=== PATIENT | female | born 1980 | race Caucasian/White ===

== ENCOUNTER 2018-03-24 15:19 | Emergency (ER) | payer MEDICAID, SELFPAY ==
[2018-03-24 15:21] VITALS: BP 146/73; PULSE 99; RESP 18; TEMP 37.7; O2SAT 97; BMI 33.7
[2018-03-24] MEDS: Ketorolac 30 MG/ML Syringe IM (16:32)
--- NOTE | 2018-03-24 16:46 | ED.DCSUM_ITS ---
- ER Visit Summary Date of Service: 03/24/18 Chief Complaint: Sore throat History of Present Illness: The patient is a 37 F presenting with sore throat. She states this started on . She has had fevers at home. She has had temperatures up to 101. She has been taking NSAIDs at home. She also complains of bilateral ear pain left greater than right. She has painful swallowing but no difficulty swallowing. No drooling. No other complaints. Physical Examination: Vitals are stable. Patient is afebrile. Alert no acute distress. HEENT exam TMs clear bilaterally. Pharyngeal erythema with no exudate. Uvula is midline Neck is supple. No meningismus Lungs are clear and equal bilaterally. Heart is regular rate and rhythm. Abdomen is soft nontender nondistended. Extremities are unremarkable. Skin is warm and dry. Remainder of exam is unremarkable. Emergency Department Course and Treatment: Patient was given Decadron, Toradol. Rapid strep is positive. She is given Zithromax due to penicillin allergy. Advised to follow-up with her primary care physician. Advised return to ED if worsening complaints. Disposition: Discharge home Impression: Pharyngitis This note was generated with [employer] dictation software. It may contain incorrect words, spelling, and punctuation that were not noted in review of the chart prior to signing ED Disposition - Plan for ED Patient: Chief Complaint: Cold Sx Referrals: Miguel Carroll DO [Primary Care Provider] -
--- NOTE | 2018-03-24 17:08 | ED.DEP ---
ED Disposition - Plan for ED Patient: Chief Complaint: Cold Sx Instructions: ED Strep Pharyngitis Poss Prescriptions: Azithromycin [Zithromax Z-Wilfred] 250 mg PO UD #1 box Referrals: Miguel Carroll DO [Primary Care Provider] -
[2018-03-24 17:14] VITALS: RESP 18
== END 2018-03-24 17:15 | disposition home or self-care (01) ==
LOC: ED 17:00
PROVIDERS: Emergency Provider Emergency Medicine; Family Provider Student in an Organized Health Care Education/Training Program; PCP Student in an Organized Health Care Education/Training Program
DX: J02.9 Acute pharyngitis, unspecified (principal); H92.03 Otalgia, bilateral; R50.9 Fever, unspecified; K58.9 Irritable bowel syndrome, unspecified; K21.9 Gastro-esophageal reflux disease without esophagitis; F31.9 Bipolar disorder, unspecified; Z72.0 Tobacco use; Z79.899 Other long term (current) drug therapy; Z88.0 Allergy status to penicillin
CPT/HCPCS: 87880; 96372; 99283

== ENCOUNTER 2018-03-26 17:45 | Emergency (ER) | payer MEDICAID, SELFPAY ==
[2018-03-26 17:45] VITALS: BP 142/79; PULSE 87; RESP 16; TEMP 36.2; O2SAT 99; BMI 33.3
--- NOTE | 2018-03-26 18:06 | CT_ITS ---
STUDY: CT SOFT TISSUE NECK WITH CONTRAST REASON FOR EXAM: Female, 37 years old. Strep throat RADIATION DOSAGE (If Supplied By Facility): CTDIvol = ( 20.49 ) mGy, DLP = ( 567.82 ) mGycm TECHNIQUE: The patient was scanned in a multi-detector CT scanner. High resolution transaxial imaging was performed following intravenous administration of 100ML ml of Isovue 300 contrast material. Sagittal and coronal images were reconstructed. Individualized dose optimization techniques were used for this CT. COMPARISON: None. FINDINGS: Normal bilateral parotid glands. 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 Normal bilateral parapharyngeal spaces. Normal bilateral carotid spaces. Normal bilateral sublingual and submandibular glands and spaces. Normal visualized nasopharynx. Normal retropharyngeal space. Normal perivertebral space. Enlarged heterogeneous tonsils bilaterally, left more than right. Mild artifact limiting evaluation due to tonsillar level. Left peritonsillar abscess cannot be excluded. The visualized tongue, tongue base and oropharynx are normal. The visualized cervical lymph nodes (levels I-) are within normal size limits, and maintain normal morphology. There is no demonstrated solid or cystic mass lesion. There is no abnormal contrast enhancement. Normal epiglottis, bilateral vallecula and hypopharynx. The pre-epiglottic and paraglottic adipose spaces are normal. Normal visualized bilateral piriform sinuses, aryepiglottic folds, vocal cords, and arytenoid-cricoid articulations. Normal subglottic trachea. Normal bilateral lobes of the thyroid gland. Normal visualized pulmonary apices. Right maxillary sinus mucosal thickening. Normal visualized cervical spine. CT/Soft Tissue Neck WITH Contrast IMPRESSION: Heterogeneous tonsils bilaterally, left more than right. Artifact limiting evaluation at the tonsillar levels. Peritonsillar abscess cannot be completely excluded. Right maxillary sinus disease. Electronically Signed: Yoni Sandra DO at 20:05 EDT Tel [phone], Service support ,
--- NOTE | 2018-03-26 18:52 | ED.RN ---
DELAY OF CARE, PATIENT WITH VERY POOR VENOUS ACCESS. I TRIED, A DARIAN RN TRIED AND NOW BETTIE MUSE RN IS IN ROOM TO ATTEMPT ANY IV ACCESS.
[2018-03-26] MEDS: Ketorolac 30 MG/ML Syringe IV (19:00)
[2018-03-26] MEDS: MethylPREDNISolone 125 MG/2 ML Vial IV (19:00)
[2018-03-26] MEDS: 0.9% Normal Saline 1,000 ML 150 ML IV (19:00)
[2018-03-26 19:27] LABS: Anion Gap 9 (5-15); BUN 10 mg/dL (7-18); BUN/Creat Ratio 15.1 RATIO (10-20); Calcium,Total 8.9 mg/dL (8.5-10.1); Chloride 111 mmol/L (98-107); Creatinine, Serum 0.66 mg/dL (0.55-1.02); EST Glomerular Filtration Rate 107 mL/min (>60); Est Glom Filt Rate - Afr Amer 129 mL/min (>60); Estimated Creatinine Clearance 102.74 ml/min; Glucose 91 mg/dL (74-106); Potassium 3.4 mmol/L (3.5-5.1); Sodium Level 141 mmol/L (136-145)
[2018-03-26 19:29] LABS: Absolute Lymphocyte Count 4.52 X10^3/ul (0.83-4.51); Absolute Neutrophil Count 8.6 X10^3/uL (2.0-7.7); Basophil# 0.07 X10^3/uL; Basophil% 0.5 % (0-1); Eosinophil# 0.11 X10^3/uL; Eosinophils% 0.7 % (0-5); Hematocrit 36.8 % (37-47); Hemoglobin 12.5 g/dl (12.0-15.0); Lymphocyte # 4.52 X10^3/ul (4.0); Lymphocyte % 30.2 % (19-41); Mean Corpuscular Hgb 32.1 pg (27.0-32.0); Mean Corpuscular Volume 94.6 fL (81-99); Mean Platelet Vol. 11.4 fl (6.2-12.0); Monocyte# 1.63 X10^3/uL; Monocyte% 10.9 % (0-10); Neutrophil # 8.62 X10^3/uL (2.7-7.7); Neutrophil % 57.4 % (47-70); Platelet Count 241 K/mm3 (150-450); RBC Distribution Width CV 13.3 % (11.6-14.6); RBC Distribution Width SD 44.6 fl (35.1-43.9); Red Blood Count 3.89 M/mm3 (4.2-5.4)
[2018-03-26 19:46] LABS: Pregnancy, Serum, hCG Quali. NEGATIVE Negative (0-9 Nonpreg)
[2018-03-26 20:12] LABS: Differential Indicated SCAN CRITERIA MET; POSITIVE COUNT NO; POSITIVE DIFFERENTIAL YES; POSITIVE MORPHOLOGY YES
[2018-03-26 20:13] LABS: Platelet Estimate ADEQUATE (ADEQ); Red Cell Morphology NORM C+C NORMAL (NORM C&C)
--- NOTE | 2018-03-26 20:37 | ED.RN ---
PT HAS BEEN COMPLAINING ABOUT PAIN AND BURNING AT IV SITE SINCE IT WAS PLACED. I WAS ABLE TO GIVE HER MEDICATIONS AND START HER IV DRIP. NO SIGNS OF INFILTRATION. PT FORCED ME TO REMOVE IV AND WAS UPSET. EDUCATED PT ON NO MORE IV MEDICATIONS. PT UPDATED ON POC.
--- NOTE | 2018-03-26 20:42 | ED.DCSUM_ITS ---
- ER Visit Summary Date of Service: 03/26/18 Chief Complaint: Sore throat History of Present Illness: The patient is a 37 F who had a sore throat for the past 5 days. Patient was seen in the ER on the were rapid strep was positive. She was started on Zithromax. She was given a dose of Decadron and T oradol in the ED. Patient states her pain was improved after her ED visit, but is now worsening again. She states she woke this morning with difficulty breathing. She been taking ibuprofen and her Zithromax at home. Physical Examination: Vital signs are unremarkable. Patient sitting upright in bed speaking with a strong voice. I can lie her supine and she has no difficulty breathing or talking. Head neck examination reveals TMs to be clear. Uvula is midline. She has 2-3+ tonsils with no exudate. There is mild bilateral anterior cervical lymphadenopathy. Heart is regular rate and rhythm. Lung sounds clear. Abdomen is soft nontender. Test Results: CBC was a white count of 15. Chemistry studies reveal potassium 3.4. test negative. CT of the neck with contrast reveals heterogeneous tonsils bilaterally, left greater than right. There is artifact limiting evaluation of the tonsillar levels and peritonsillar abscess cannot be completely excluded. Emergency Department Course and Treatment: Patient was given Toradol and Solu- Medrol here. On repeat evaluation she is resting comfortably. She will be given prednisone for home and will continue her Zithromax. Treatment Plan: [] Disposition: Discharge Impression: Strep pharyngitis This note was generated with [employer] dictation software. It may contain incorrect words, spelling, and punctuation that were not noted in review of the chart prior to signing ED Disposition - Plan for ED Patient: Chief Complaint: Sore Throat Referrals: Miguel Carroll DO [Primary Care Provider] -
--- NOTE | 2018-03-26 20:44 | ED.DEP ---
ED Disposition - Plan for ED Patient: Disposition: Home or Assisted Living Chief Complaint: Sore Throat Instructions: ED Strep Pharyngitis Conf Referrals: Miguel Carroll DO [Primary Care Provider] - 1 Week
--- NOTE | 2018-03-26 20:45 | ED.DEP ---
ED Disposition - Plan for ED Patient: Disposition: Home or Assisted Living Chief Complaint: Sore Throat Instructions: ED Strep Pharyngitis Conf Prescriptions: Prednisone [Deltasone] 40 mg PO DAILY #10 tablet Referrals: Miguel Carroll DO [Primary Care Provider] - 1 Week
[2018-03-26 20:57] VITALS: BP 131/67; PULSE 79; RESP 22; O2SAT 97
--- NOTE | 2018-03-26 20:58 | ED.RN ---
THIS NURSE REVIEWED D/C INSTRUCTIONS WITH PT. PT VERBALIZED UNDERSTANDING OF INSTRUCTIONS. IV ALREADY D/C. PT DENIES FURTHER NEEDS OR QUESTIONS AT THIS TIME.
[2018-03-27 12:34] LABS: Pathologist Review Reviewed
== END 2018-03-26 20:59 | disposition home or self-care (01) ==
PROVIDERS: Emergency Provider Emergency Medicine; Family Provider Student in an Organized Health Care Education/Training Program; PCP Student in an Organized Health Care Education/Training Program
DX: J02.0 Streptococcal pharyngitis (principal); J45.909 Unspecified asthma, uncomplicated; K21.9 Gastro-esophageal reflux disease without esophagitis; F31.9 Bipolar disorder, unspecified; Z72.0 Tobacco use; Z79.899 Other long term (current) drug therapy
CPT/HCPCS: 70491; 80048; 84703; 85025; 96361; 96374; 96375; 99285; J7030; Q9967; A4216

== ENCOUNTER → 2019-09-05 13:50 | Outpatient (CLI) | payer MEDICAID, SELFPAY ==
--- NOTE | 2019-09-05 13:55 | BI_ITS ---
MAMMOGRAPHY - BILATERAL DIAGNOSTIC REASON FOR EXAM: Female, 39 years old. Right breast lump. Painful. PERTINENT HISTORY: Non-contributory. TECHNIQUE: Digital bilateral breast yesenia (3D mammographic acquisition) in the CC and MLO projections. 2-D mediolateral oblique (MLO) and craniocaudad (CC) views of both breasts were obtained. CAD: Full Field Digital Mammography with Computer Added Detection was performed. COMPARISON: None. Baseline examination. FINDINGS: Breast Composition: The breasts are extremely dense, which lowers the sensitivity of mammography. The palpable abnormality corresponds to a 3.1 cm x 2.1 cm well-defined nodule in the inferior medial portion of the left breast. Correlation with ultrasound is recommended. Benign-appearing bilateral axillary lymph nodes. No other significant abnormalities are identified. BI/DIAG MAMM W/CAD, BILAT IMPRESSION: 2.1 cm x 3.1 cm well-defined nodule in the inferior medial aspect of the left breast as described. Correlation with ultrasound is recommended. Benign appearing bilateral axillary lymph cells. ASSESSMENT CATEGORY: BIRADS Category 0: Incomplete. Need additional imaging evaluation. A letter regarding these results will be sent to the patient by the facility within 30 days. Approximately 10% of breast cancers are not detected by mammography. A normal mammogram should not delay biopsy of a clinically suspicious abnormality. Electronically Signed: Arturo Chung, at 15:11 EDT , Service support ,
--- NOTE | 2019-09-05 13:55 | US_ITS ---
STUDY: ULTRASOUND BREAST - LEFT REASON FOR EXAM: Female, 39 years old. Palpable lump left breast. TECHNIQUE: Axial and longitudinal images of the LEFT breast were performed with a high resolution ultrasound transducer. # OF IMAGES: 22 COMPARISON: Comparison is made with prior mammogram done earlier in the day. FINDINGS: LEFT Breast: The mammographic abnormality corresponds to a 2.4 cm x 2.5 cm x 1.6 cm well-circumscribed heterogeneous solid nodule at the 7:00 position of the breast at 2 cm from the nipple. Increased vascularity is seen along its margin. A biopsy is recommended for further evaluation. US/Breast Limited Unilateral IMPRESSION: 2.4 cm x 2.5 cm x 1 0.6 mL well-circumscribed heterogeneous solid nodule at the 7:00 position of the breast at 2 cm from the nipple. A biopsy is recommended for further evaluation. ASSESSMENT CATEGORY: BIRADS Category 4: Suspicious - Biopsy Should Be Considered. A letter regarding these results will be sent to the patient by the facility within 30 days. Electronically Signed: Arturo Chung, at 15:31 EDT , Service support ,
== END ==
PROVIDERS: PCP Student in an Organized Health Care Education/Training Program; Referring Provider Student in an Organized Health Care Education/Training Program; Visit Provider Student in an Organized Health Care Education/Training Program
DX: N63.24 Unspecified lump in the left breast, lower inner quadrant (principal); N64.4 Mastodynia
CPT/HCPCS: 76642; 77062; 77066; G0279

== ENCOUNTER → 2019-09-11 14:25 | Outpatient (CLI) | payer MEDICAID, SELFPAY ==
--- NOTE | 2019-09-11 | BRBX_PTH ---
PATIENT: JUNIOR HYLTON LOC: PAT U#:[id number] AGE/SX: 45/F ROOM: RE09/11/[address]: Dr. Harrison Barillas MD : 1980 BED: DIS: SPEC #: [id number] RECD: 09/11/19 14:12 STATUS: DEMETRI REXochitl #: [id number] YONATHAN: 09/11/19 00:[address]: Harrison Barillas DEPT: SURGICAL PATHOLOGY RECD BY: Mayank Yoo ENTERED: 09/12/19 11:29 SP TYPE: BREAST BX OTHR DR: Dr. 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 Negative for atypia or malignancy. SJ:deven 09/13/19 COMMENT Correlation with clinical, radiologic findings and appropriate follow up are necessary. Case has been reviewed in consultation with Dr. Agarwal who concurs with the above diagnosis. IDC:AM MICROSCOPIC DESCRIPTION Slides are reviewed. GROSS DESCRIPTION Received in fixative is one container labeled with the patient's name and designated left breast. The specimen consists of two elongated fragments of light schultz soft tissue ranging in length from 0.6 to 1 cm and each having a diameter of 0.2 cm. The specimen is submitted in its entirety in one cassette. / AM:deven 09/12/19 TC:1 CPT: 22074
[2019-09-11 14:23] VITALS: BMI 33.3
== END ==
PROVIDERS: PCP Student in an Organized Health Care Education/Training Program; Referring Provider Surgery; Visit Provider Surgery
DX: R92.8 Other abnormal and inconclusive findings on diagnostic imaging of breast (principal); N63.0 Unspecified lump in unspecified breast
CPT/HCPCS: 88305

== ENCOUNTER → 2020-02-14 10:46 | Outpatient (CLI) | payer MEDICAID, SELFPAY ==
[2020-02-13 14:03] VITALS: BMI 34.3
--- NOTE | 2020-02-14 10:47 | US_ITS ---
STUDY: ULTRASOUND BREAST - LEFT REASON FOR EXAM: Female, 39 years old. Palpable lump left breast. TECHNIQUE: Axial and longitudinal images of the LEFT breast were performed with a high resolution ultrasound transducer. # OF IMAGES: 42 COMPARISON: Comparison is made with prior ultrasound of the left breast dated 09/05/2019 and prior mammogram dated 09/05/2019. FINDINGS: LEFT Breast: Once again, there is evidence of a 2.8 cm x 3.3 cm x 2.2 cm inhomogeneous solid mass at the 7 o''clock position of the breast. This is increased in size as compared to prior study. The upper inner quadrant of the breast was examined at this time. No sonographic abnormality is seen. US/Breast Limited Unilateral IMPRESSION: Slight increase in size of the previously seen inhomogeneous solid mass at the 7 o''clock position of the breast. No other sonographic abnormality is seen. The patient is scheduled for lumpectomy of the previously mentioned mass. ASSESSMENT CATEGORY: BIRADS Category 4: Suspicious - Biopsy Should Be Considered. A letter regarding these results will be sent to the patient by the facility within 30 days. Electronically Signed: Arturo Chung, at 12:41 EDT , Service support ,
== END ==
PROVIDERS: PCP Student in an Organized Health Care Education/Training Program; Referring Provider Surgery; Visit Provider Surgery
DX: N63.20 Unspecified lump in the left breast, unspecified quadrant (principal)
CPT/HCPCS: 76642

== ENCOUNTER 2020-02-28 08:26 | Day surgery (SDC) | payer MEDICAID, SELFPAY ==
--- NOTE | 2020-02-19 03:20 | HP_ITS ---
Intake Vital Signs 02/19/20 BMI 34.3 02/19/20 Height 5 ft 4 in 02/19/20 Weight: 200 lb 02/19/20 BMI 34.3 02/19/20 Respiration 16 Intake Visit Reasons: F/U LEFT BREAST US 02/13 [facility] Chief Complaint: f/u US Certified Composites Technician Required: No Is patient in pain?: No Allergies cyprodenate Allergy (Unknown, Verified 02/19/20 15:11) Unknown lamotrigine Allergy (Unknown, Verified 02/19/20 15:11) Unknown ondansetron [From Zofran] Allergy (Unknown, Verified 02/19/20 15:11) Unknown sulfamethoxazole [From Bactrim] Allergy (Unknown, Verified 02/19/20 15:11) Unknown trimethoprim [From Bactrim] Allergy (Unknown, Verified 02/19/20 15:11) Unknown aripiprazole [From Abilify] Allergy (Verified 02/19/20 15:11) Rash cephalexin monohydrate [From Keflex] Allergy (Verified 02/19/20 15:11) Swelling naproxen Allergy (Verified 02/19/20 15:11) Rash ondansetron HCl [From Zofran] Allergy (Verified 02/19/20 15:11) Other oxycodone HCl [From Percocet] Adverse Reaction (Verified 02/19/20 15:11) Other Penicillins Adverse Reaction (Verified 02/19/20 15:11) Pain in joints Medications Omeprazole [Prilosec] 40 mg PO BID 02/07/15 [History Confirmed 02/19/20] Docusate Sodium [Colace] 200 mg PO QHS 05/16/15 [History Confirmed 02/19/20] Cetirizine HCl [Zyrtec] 10 mg PO DAILY 06/25/15 [History Confirmed 02/19/20] Albuterol Inhaler [Ventolin Hfa] 1 - 2 puff INHALATION Q4H PRN PRN #1 inhaler 04/09/16 [Rx Confirmed 02/19/20] hydrOXYzine pamoate capsule [Vistaril] 50 mg PO TID PRN PRN 12/03/16 [History Confirmed 02/19/20] colestipol 1 gram tablet PO 09/11/19 [History Confirmed 02/19/20] dicyclomine 20 mg tablet 20 mg PO Q6H tab 09/11/19 [History Confirmed 02/19/20] doxepin 75 mg capsule 75 mg PO QHS cap 09/11/19 [History Confirmed 02/19/20] PFSH Medical History Acid reflux (Acute) Diarrhea (Acute) Asthma (Acute) SOB (shortness of breath) (Acute) Anxiety (Acute) Depression (Acute) Back problem (Acute) Surgical History Hx of tubal ligation (Acute) History of tympanostomy tube placement (Acute) History of (Acute) Hx of cholecystectomy (Acute) Social History (Updated 02/19/20 @ 15:[address] Harrison Barillas MD) Smoking Status: Current every day smoker second hand exposure: Yes alcohol intake: never substance use type: does not use caffeine: Yes what type of physical activity do you participate in: none frequency: does not exercise seatbelt use: always HPI HPI Surgical H&P: Yes HPI: JUNIOR HYLTON, is a 39 F who presents to the office today for Preop evaluation for surgery for benign fungoides tumor she has in the left lower medial aspect of her breast. I did a biopsy of this and this came back as a benign [place] tumor and she is presenting here today to have a preoperative H&P to get the surgery done however she states that she is having palpable fullness and mass in the upper inner quadrant of her left breast and there have been no imaging studies of this that I can find. Patient had a repeat ultrasound of her left breast which did not show any masses in the area that she thought she felt something. ROS Breast Breast: No nipple discharge Exam HENMT Head: normal to inspection, normocephalic, atraumatic Mouth: oropharynx normal, moist mucous membranes Eyes General: appearance normal, both eyes and all related structures Sclera: sclerae normal Neck Neck: trachea midline, no lymphadenopathy noted Neck mass: No Thyroid: thyroid normal Lymphatic: no lymphadenopathy noted Chest Breast inspection: normal inspection of the breasts Breast Palpation: No nipple discharge Other: Hard palpable lesion is identified in the lower inner quadrant of the left breast. Resp Other: Respiratory Exam: Deferred Cardio Other: Cardiac Exam: Deferred GI Other: GI Exam: Deferred Other: Rectal Exam: Deferred Extrem Other: Extremity Exam: Deferred Assessment & Plan Problems 1. 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 I have recommended And excisional left breast biopsy. I have described the procedure to the patient. I have discussed with the patient that sometimes the ultrasound lesion may be artifact and is user dependent and therefore prior to undergoing the procedure, the patient will have a definitive US to ensure that the lesion is truly present and is not artifact. Patient has been counseled to the risks/benefits of the procedure. I have explained the risks of the surgery, including but not limited to: infection, bleeding, injury to any blood vessels/nerves, scar tissue, missing the lesion, further surgery, etc. - the patient understands and agrees to proceed. I have answered all of the patient's questions to her satisfaction and she has no further questions. 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 delaying the surgery/procedure. It is not possible to know either the risk of delaying the surgery or procedure or chance of getting an infection with perfect accuracy, but a joint decision was made between the patient and the surgeon/proceduralist ?to proceed at this time with the scheduled surgery/procedure as indicated on the consent form. 02/19/20 1521 <Electronically signed by Harrison brian MD> Date _ Harrison Barillas MD I have re-examined the patient. There are no clinical changes since date of exam.
[2020-02-19 15:11] VITALS: BMI 34.3
[2020-02-28] VITALS (7 sets, daily range): BP systolic 105–124; BP diastolic 62–75; PULSE 72–88; RESP 16; TEMP 36.3–37.7; O2SAT 96–100; BMI 35.4
[2020-02-28] MEDS: Lactated Ringers 1,000 ML 100 ML IV ×2 (09:02→11:39)
[2020-02-28 09:05] LABS: Internal QC Validated? YES +Cl - CLEAR BKGD; Pregnancy, Urine Negative Negative
--- NOTE | 2020-02-28 10:40 | BRBX_PTH ---
PATIENT: JUNIOR HYLTON [place] [facility] [id number] AGE/SX: 39/F ROOM: RE02/28/[address]: Dr. Harrison Barillas MD : 1980 BED: DIS: 02/28/2020 SPEC #: [id number] RECD: 02/28/20 11:47 STATUS: DEMETRI REXochitl #: [id number] YONATHAN: 02/28/20 10:[address]: Harrison Barillas DEPT: SURGICAL PATHOLOGY RECD BY: Vivi Patterson ENTERED: 02/28/20 13:09 SP TYPE: BREAST BX OTHR DR: Dr. Miguel Carroll, DO Tissues: Left breast, NOS Procedures: Surgery Specimen Level V HEADER OPERATION: Left breast phyllodes tumor excision PRE-OP DIAGNOSIS: Benign phyllodes tumor of left breast TISSUE SUBMITTED: Excision left breast phyllodes tumor MICROSCOPIC DIAGNOSIS Left breast phyllodes tumor, excisional biopsy: Fibroadenoma/benign phyllodes tumor. Negative for atypia or malignancy. OLMAN:deven 03/03/20 COMMENT Please make reference to previous specimen ([id number]) left breast, ultrasound-guided core biopsy with diagnosis of fibroadenoma/benign phyllodes tumor with focal fibrocystic changes. MICROSCOPIC DESCRIPTION Slides are reviewed. GROSS DESCRIPTION Received in fixative is one container labeled with the patient's name and designated excision left breast phyllodes tumor. The specimen consists of a schultz nodular piece of tissue measuring 4 x 2.5 x 2.5 cm. The specimen is not oriented. The specimen is inked, serially sectioned and reveals schultz-white solid cut surfaces. Supervisor Kennel sections are submitted in six cassettes. / OLMAN:deven 03/02/20 TC:1 CPT: 67451
--- NOTE | 2020-02-28 10:52 | PCM.OPRPT ---
Problem List (1) Benign phyllodes tumor of left breast Status: Acute Report of Operation Date of Procedure: 02/28/20 Pre-Operative Diagnosis: phylodes tumor left breast Post-Operative Diagnosis: Same Surgery/Procedure Performed:: Excisional left breast biopsy Type of Anesthesia:: General Anesthesiologist: Wayne Burciaga Specimen's removed: phylodes tumor left breast Estimated Blood Loss (mL): < 25 cc Description of Procedure: Patient was brought into the operating room. Placed in the supine position. Under excellent general trach intubation left breast was sterilely prepped draped usual fashion. At the 7 o'clock position the mass was palpated local was injected incision was made dissection was carried down the tumor was removed in its entirety and sent to pathology for permanent sectioning. Electrocautery was used for good pneumostasis. More local was injected in the subcutaneous tissues. Subcutaneous tissue was brought together with a [id number] stitch of 2-0 Vicryl. Deep dermal stitches of 3-0 Vicryl. A running 4-0 Monocryl. Dermabond was applied sterile dressings were applied and the patient tolerated the procedure well. Of note patient stated that she was allergic to clindamycin just prior to it being run in the operating room. I elected not to give her any antibiotics. And only use the Chloraseptic prep. - Admit VTE Documentation VTE Present on Admission: No VTE Mechan Device Prophylaxis: SCD's VTE Pharm Prophylaxis ordered?: No Reason prophylaxis not ordered:: Treatment Not Indicated [id number]: [id number] Biopsy of breast open
--- NOTE | 2020-02-28 10:56 | DCINST_ITS ---
Discharge Diet: No Restrictions Discharge Activity: Return to Normal Activity May shower in (days): 3 Remove Dressing in (days):: 3 - Leave Dermabond in place. Allergies/Adverse Reactions: Allergies cyprodenate Allergy (Unknown, Verified 02/28/20 08:45) Unknown lamotrigine Allergy (Unknown, Verified 02/28/20 08:45) Unknown ondansetron [From Zofran] Allergy (Unknown, Verified 02/28/20 08:45) Unknown sulfamethoxazole [From Bactrim] Allergy (Unknown, Verified 02/28/20 08:45) Unknown trimethoprim [From Bactrim] Allergy (Unknown, Verified 02/28/20 08:45) Unknown aripiprazole [From Abilify] Allergy (Verified 02/28/20 08:45) Rash cephalexin monohydrate [From Keflex] Allergy (Verified 02/28/20 08:45) Swelling naproxen Allergy (Verified 02/28/20 08:45) Rash ondansetron HCl [From Zofran] Allergy (Verified 02/28/20 08:45) Other oxycodone HCl [From Percocet] Adverse Reaction (Verified 02/28/20 08:45) Other Penicillins Adverse Reaction (Verified 02/28/20 08:45) Pain in joints Medications to take at Discharge Omeprazole [Prilosec] 40 mg PO BID 02/07/15 Docusate Sodium [Colace] 200 mg PO QHS 05/16/15 Cetirizine HCl [Zyrtec] 10 mg PO DAILY 06/25/15 Albuterol Inhaler [Ventolin Hfa] 1 - 2 puff INHALATION Q4H PRN PRN #1 inhaler 04/09/16 hydrOXYzine pamoate capsule [Vistaril] 50 mg PO TID PRN PRN 12/03/16 colestipol 1 gram tablet 1 g PO PRN PRN 09/11/19 dicyclomine 20 mg tablet 20 mg PO Q6H tab 09/11/19 doxepin 75 mg capsule 75 mg PO QHS cap 09/11/19 Ascorbic Acid [Vitamin C] 1,000 mg PO DAILY 02/21/20 Multivitamin with Minerals [Multiple Vitamin] 1 ea PO DAILY 02/21/20 Topiramate [Topamax] 50 mg PO QHS 02/21/20 Hydrocodone Bitart/Apap 5-325 [Fitzpatrick 5MG-325MG] 1 - 2 tablet PO Q4H PRN PRN 6 Days #30 tablet 02/28/20 The following prescriptions were given: Hydrocodone Bitart/Apap 5-325 [Fitzpatrick 5MG-325MG] 1 - 2 tablet PO Q4H PRN PRN 6 Days #30 tablet PRN Reason: Pain Transmission Status: Sent to [facility] Primary Care Physician: Miguel Carroll DO [Primary Care Provider] - Test Results: Test results from this visit will be discussed in further detail at your follow- up appointment, if applicable. Please Follow Up With: Harrison Barillas MD - [phone] When: Please call for an appointment to be seen in one week.
[2020-02-28] MEDS: Bupivacaine Mpf 0.5% 30 ML VIAL (11:00)
[2020-02-28] MEDS: HYDROcodone Bitartrate/Apap 5/325 Tablet PO (12:50)
== END 2020-02-28 13:47 | disposition home or self-care (01) ==
LOC: SDC 08:26 → AC 08:26
PROVIDERS: Anesthesiology; PCP Student in an Organized Health Care Education/Training Program; Referring Provider Surgery; Visit Provider Surgery
PROC: (CPT 19301; principal; 2020-02-28 10:25)
DX: D24.2 Benign neoplasm of left breast (principal); R19.7 Diarrhea, unspecified; J45.909 Unspecified asthma, uncomplicated; K21.9 Gastro-esophageal reflux disease without esophagitis; F31.9 Bipolar disorder, unspecified; F41.9 Anxiety disorder, unspecified; F17.200 Nicotine dependence, unspecified, uncomplicated; Z79.899 Other long term (current) drug therapy
CPT/HCPCS: 00400; 19120; 81025; 87635; 88305; 88307; C9803; J7120; J2405; U0003

== ENCOUNTER 2021-10-05 13:53 | Emergency (ER) | payer MEDICAID, SELFPAY ==
[2021-10-05 13:53] VITALS: BP 139/77; PULSE 86; RESP 15; TEMP 36.1; O2SAT 97; BMI 31.7
--- NOTE | 2021-10-05 14:13 | CT_ITS ---
STUDY: CT ABDOMEN AND PELVIS WITHOUT CONTRAST REASON FOR EXAM: Female, 41 years old. Right flank pain RADIATION DOSAGE (If Supplied By Facility): CTDIvol = ( 11.70 ) mGy, DLP = ( 564.03 ) mGycm TECHNIQUE: Transaxial images were obtained from the dome of the diaphragm to the symphysis pubis without oral contrast, and without intravenous contrast. Sagittal and coronal images were reconstructed. Individualized dose optimization techniques were used for this CT. COMPARISON: None. FINDINGS: The visualized lung bases are unremarkable. The visualized portions of the heart are within normal limits. Simple cyst of the hepatic dome. No required imaging follow-up needed given high likelihood of benign nature. There is non-visualization of the gallbladder, which may be secondary to either contraction or a prior cholecystectomy. Normal spleen. Normal pancreas. Normal bilateral adrenal glands. Normal right kidney. Normal left kidney. Normal visualized stomach. Normal small intestine. Normal colon. There is non-visualization of the appendix. Normal abdominal aorta. Normal inferior vena cava. Normal retroperitoneum. Normal urinary bladder. Normal abdominal wall. Normal osseous structures. CT/Abdomen/Pelvis without Cont IMPRESSION: No hydronephrosis or urinary tract calcifications. Electronically Signed: Rodney Oviedo MD (Brooks) at 14:59 EDT Reading Location ID and State: [facility] / [place] , Service support ,
--- NOTE | 2021-10-05 14:14 | ED.VIS.GI ---
HPI HPI - GI History of Present Illness Chief Complaint: Flank Pain Informant: patient Abdominal Pain/Flank Pain Onset: Days Context: Gradual Onset Timing: Continuous Quality: Aching Location: Right Flank Current Severity: Mild Maximum Severity: Mild Worsened by: Nothing Relieved by: Nothing Nausea/Vomiting/Emesis GI Symptom: Positive for Nausea; Negative for Vomiting Onset: Days Severity: Mild Diarrhea/Melena/Hematochezia GI Symptom: Negative for Diarrhea, Melena and Hematochezia Associated Symptoms Associated Symptoms: Negative for Dysuria, Frequency, Hematuria and Urgency Narrative Narrative: 41-year-old female history of anxiety depression, irritable bowel and prior cholecystectomy. Complain right flank pain since Monday afternoon evening. States he was gradual onset. Denies any fever or chills. Nausea without vomiting. No constipation. No dysuria. No vaginal bleeding or discharge. States has had similar pain with urinary tract infection before. Has never had a kidney stone. Denies any trauma. Prior similar symptoms: Yes Recent Illness/Hospitalization: No PFSH PFSH Medical History Acid reflux Anxiety Asthma Back problem Benign phyllodes tumor of left breast Depression Diarrhea Fibroadenoma of left breast SOB (shortness of breath) Home Medications omeprazole 40 mg PO BID 02/07/15 [History Last Taken 02/28/20] docusate sodium 200 mg PO QHS 05/16/15 [History Last Taken Unknown] cetirizine 10 mg PO DAILY 06/25/15 [History Last Taken Unknown] albuterol sulfate 1 - 2 puff INHALATION Q4H PRN PRN #1 inhaler 04/09/16 [Rx Last Taken Unknown] hydroxyzine pamoate 50 mg PO TID PRN PRN 12/03/16 [History Last Taken Unknown] colestipol 1 gram tablet 1 g PO PRN PRN 09/11/19 [History Last Taken Unknown] dicyclomine 20 mg tablet 20 mg PO Q6H tab 09/11/19 [History Last Taken Unknown] doxepin 75 mg capsule 75 mg PO QHS cap 09/11/19 [History Last Taken Unknown] ascorbic acid (vitamin C) 1,000 mg PO DAILY 02/21/20 [History Last Taken Unknown] multivitamin with minerals 1 ea PO DAILY 02/21/20 [History Last Taken Unknown] topiramate 50 mg PO QHS 02/21/20 [History Last Taken Unknown] Allergy/AdvReac Type Severity Reaction Status Date / Time cyprodenate Allergy Unknown Unknown Verified 10/05/21 13:55 lamotrigine Allergy Unknown Unknown Verified 10/05/21 13:55 ondansetron [From Zofran] Allergy Unknown Unknown Verified 10/05/21 13:55 sulfamethoxazole Allergy Unknown Unknown Verified 10/05/21 13:55 [From Bactrim] trimethoprim [From Bactrim] Allergy Unknown Unknown Verified 10/05/21 13:55 aripiprazole [From Abilify] Allergy Rash Verified 10/05/21 13:55 cephalexin monohydrate Allergy Swelling Verified 10/05/21 13:55 [From Keflex] naproxen Allergy Rash Verified 10/05/21 13:55 ondansetron HCl [From Zofran] Allergy Other Verified 10/05/21 13:55 oxycodone HCl [From Percocet] AdvReac Other Verified 10/05/21 13:55 Penicillins AdvReac Pain in Verified 10/05/21 13:55 joints Surgical History history excisional left breast biopsy (~02/28/20) History of History of tympanostomy tube placement Hx of cholecystectomy Hx of tubal ligation Social History Smoking Status: Current every day smoker tobacco type: cigarettes second hand exposure: Yes alcohol intake: never substance use type: does not use caffeine: Yes what type of physical activity do you participate in: none frequency: does not exercise seatbelt use: always ROS ROS ED ROS Narrative Right flank pain. Nausea. Review of Systems ROS Unobtainable: Denies due to encephalopathy Constitutional Constitutional ED: Denies fever(s) ENT ENT ED: Denies ear pain Cardiovascular Cardiovascular: Denies chest pain Respiratory/Chest Respiratory/Chest: Denies cough, dyspnea or sputum Gastrointestinal Gastrointestinal: Reports abdominal pain and nausea; Denies constipation, diarrhea, melena or vomiting Genitourinary Genitourinary ED: Denies dysuria, hematuria or urinary frequency Musculoskeletal Musculoskeletal: Denies myalgias Integumentary Denies rash Neurologic Neurologic: Denies headache(s) Psychiatric Psychiatric: Denies depression Endocrine Endocrinology: Denies polyuria Hematologic/Lymphatic Hematologic/Lymphatic: Denies easy bruising Allergic/Immunologic Allergic/Immunologic ED: Denies urticaria EXAM Physical Exam Narrative Exam Narrative: 41-year-old no acute distress. Vital signs stable afebrile. H EENT exam unremarkable. Lungs clear to auscultation. Heart regular rhythm rate about 85 no murmur. Chest wall nontender. Abdomen soft nontender normal bowel sounds no peritoneal signs. Right upper and lower quadrants are nontender. Back right flank tenderness at the lowest ribs on the right posteriorly and the CVA area. No signs of trauma. Moving all 4 extremities. Neurovascular intact. Neurologically awake and alert. Const Vital Signs: 10/05/21 13:53 Temperature 97 F L Temperature Source Temporal Pulse Rate 86 Respiratory Rate 15 Blood Pressure 139/77 H Blood Pressure Mean 97 Pulse Ox 97 Oxygen Delivery Method Room Air Positive well nourished, well developed and obese; Negative for cachectic, contractures or unkempt General Appearance ED: well developed and NAD; Negative for unkempt, cachectic, contractures or pallor Nutritional Appearance: obese; Negative for cachectic HEENT Reports moist mucous membranes normocephalic and atraumatic; Negative for trauma or tenderness Eyes PERRL and EOMs intact bilaterally General Eye ED: Negative for pale conjunctiva or scleral icterus Neck no lymphadenopathy, supple and no JVD General: Negative for tenderness Resp normal respiratory effort and clear to auscultation bilaterally Auscultation: Negative for rales, rhonchi or wheezes Cardio regular rate, regular rhythm, S1 normal heart sound, S2 normal heart sound and no murmurs GI non-tender, non-distended and no masses Auscultation: normoactive bowel sounds Palpation: soft; Negative for tender, guarding or rigid Back/Spine Negative for no CVA tenderness General Back: CVA tenderness Cervical Spine: Negative for cervical spine tenderness Thoracic Spine / Upper Back: Negative for thoracic spinal tenderness Extremity full ROM General Extremety ED: Negative for edema or tenderness General Extremity: Negative for edema Neuro moves all extremities Sensorium / Orientation: alert, oriented to person, oriented to place and oriented to time; Negative for orientation impaired, confused, lethargic or stuporous Motor Exam: strength 5/5 throughout Psych mental status grossly normal and thought process normal Appearance: Negative for unkempt Attitude: No agitated Mood & Affect: Negative for depressed or tearful Skin no wounds General Skin Exam: Negative for jaundice or pallor Lesions: no lesions Rashes: no rashes MDM MDM MDM Narrative Medical decision making narrative: 41-year-old with right flank pain. CAT scan labs pending. Kidney stone versus UTI versus other etiologies. Patient treated with Toradol for pain and Reglan for nausea. States she cannot take Zofran. Repeat exam at 3:40 pm patient is doing well. We went over all of her test results which were negative. I explained her there is no signs of infection or kidney stone. This is either flank pain of uncertain etiology or musculoskeletal etiology. She will be discharged home. Motrin Tylenol for pain. Follow-up with her primary care provider if not improving. Lab Data Attestation: I reviewed the patient's lab results. Lab results narrative: CBC shows a normal white count 8. H&H of 13 and 41. Electrolytes gap of 4. Normal BUN and creatinine. Glucose is 90. UA negative. CAT scan no acute abnormality. Labs: Laboratory Results - last 24 hr 10/05/21 10/05/21 10/05/21 14:15 14:15 14:48 WBC 8.4 RBC 4.24 Hgb 13.9 Hct 41.6 MCV 98.1 MCH 32.8 H MCHC 33.4 RDW Std Deviation 45.3 H RDW Coeff of Sonu 12.7 Plt Count 213 MPV 11.7 Immature Gran % (Auto) 0.400 Neut % (Auto) 52.0 Lymph % (Auto) 35.9 [place] % (Auto) 9.5 Eos % (Auto) 2.1 Baso % (Auto) 0.1 Absolute Neuts (auto) 4.4 Absolute Lymphs (auto) 3.03 Nucleated RBC % 0 Sodium 140 Potassium 4.6 Chloride 112 H Carbon Dioxide 24.0 Anion Gap 4 L BUN 6 L Creatinine 0.86 Estim Creat Clear Calc 75.84 Est GFR (MDRD) Af Amer 95 Est GFR (MDRD) Non-Af 78 BUN/Creatinine Ratio 7.0 L Glucose 90 Calcium 9.3 Urine Color Yellow Urine Clarity Clear Urine pH 7.0 Ur Specific [place] 1.005 Urine Protein Negative Urine Glucose (UA) Normal Urine Ketones Negative Urine Occult Blood Negative Urine Nitrite Negative Urine Bilirubin Negative Urine Urobilinogen Normal Ur Leukocyte Esterase Negative Urine RBC 0 SEEN Urine WBC 0 SEEN Ur Squamous Epith Cells 0 SEEN Urine Bacteria 0 SEEN Urine Mucus 0 SEEN Radiography Diagnostic Testing: Clinical Impression(s) from Imaging Studies Abdomen/Pelvis CT 10/05/21 14:13 IMPRESSION: No hydronephrosis or urinary tract calcifications. Electronically Signed: Rodney Oviedo MD (Brooks) at 14:59 EDT Reading Location ID and State: [facility] / [place] , Service support , Discharge Plan Triage Chief Complaint: Flank Pain ED Provider: Vish Barkley Dx/Rx/DC Orders Clinical Impression: Flank pain, acute, History of IBS Instructions: ED Flank Pain, Uncertain Cause Prescriptions: No Action dicyclomine 20 mg tablet 20 mg PO Q6H RF: 0 doxepin 75 mg capsule 75 mg PO QHS RF: 0 colestipol 1 gram tablet 1 g PO PRN PRN (Reason: Diarrhea) RF: 0 omeprazole 20 MG capsule 40 mg PO BID RF: 0 docusate sodium 100 MG capsule 200 mg PO QHS RF: 0 cetirizine 10 MG capsule 10 mg PO DAILY RF: 0 albuterol sulfate 1 INHALER inhaler 1 - 2 puff inhalation Q4H PRN PRN (Reason: Wheezing) Qty: 1 RF: 0 hydroxyzine pamoate 25 MG capsule 50 mg PO TID PRN PRN (Reason: Anxiety) RF: 0 ascorbic acid (vitamin C) 1,000 MG tablet 1,000 mg PO DAILY RF: 0 multivitamin with minerals 1 EACH tablet 1 ea PO DAILY RF: 0 topiramate 50 MG tablet 50 mg PO QHS RF: 0 Primary Care Provider: Miguel Carroll Referrals: Miguel Carroll, [Primary Care Provider] - 3-5 Days if not improving Activity Restrictions/Additional Instructions: All your labs, urinalysis and CAT scans were normal. There is no signs of urinary tract infection nor any signs of a kidney stone. This is either musculoskeletal pain or flank pain of uncertain etiology. Motrin and Tylenol for pain. Follow-up with your doctor if not improving. Disposition Disposition: Home, Self Care
[2021-10-05] MEDS: Metoclopramide 10 MG/2 ML Vial 5 MG IV (14:26)
[2021-10-05] MEDS: Ketorolac 30 MG/ML Syringe IV (14:26)
[2021-10-05 14:35] LABS: Absolute Lymphocyte Count 3.03 X10^3/uL (0.83-4.51); Absolute Neutrophil Count 4.4 X10^3/uL (2.0-7.7); Basophil# 0.01 X10^3/uL; Basophil% 0.1 % (0-1); Eosinophil# 0.18 X10^3/uL; Eosinophils% 2.1 % (0-5); Hematocrit 41.6 % (37-47); Hemoglobin 13.9 g/dL (12.0-15.0); Lymphocyte # 3.03 X10^3/ul (0.83-4.51); Lymphocyte % 35.9 % (19-41); Mean Corp Hgb Conc 33.4 g/dL (32-36); Mean Corpuscular Hgb 32.8 pg (27.0-32.0); Mean Corpuscular Volume 98.1 fL (81-99); Mean Platelet Vol. 11.7 fl (6.2-12.0); Monocyte% 9.5 % (0-10); NRBC Flagged by Analyzer 0 % (0-5); Neutrophil # 4.38 X10^3/uL (2.7-7.7); Platelet Count 213 K/mm3 (150-450); RBC Distribution Width CV 12.7 % (11.6-14.6); RBC Distribution Width SD 45.3 fl (35.1-43.9); Red Blood Count 4.24 M/mm3 (4.2-5.4); White Blood Count 8.4 K/mm3 (4.4-11.0)
[2021-10-05 14:48] LABS: Anion Gap 4 (5-15); BUN 6 mg/dL (7-18); Calcium,Total 9.3 mg/dL (8.5-10.1); Chloride 112 mmol/L (98-107); Creatinine, Serum 0.86 mg/dL (0.55-1.02); EST Glomerular Filtration Rate 78 mL/min (>60); Est Glom Filt Rate - Afr Amer 95 mL/min (>60); Estimated Creatinine Clearance 75.84 ml/min; Glucose 90 mg/dL (74-106); Potassium 4.6 mmol/L (3.5-5.1); Sodium Level 140 mmol/L (136-145)
[2021-10-05 14:51] LABS: Red Blood Cells-Urine 0 SEEN /hpf (0-5); Squamous Epithelial Cells - UA 0 SEEN /hpf (5-10); White Blood Cells 0 SEEN /hpf (0-5)
[2021-10-05 14:52] LABS: Bacteria 0 SEEN /hpf (None Seen); Mucous, Urine 0 SEEN /hpf (<or=2+)
[2021-10-05 14:55] LABS: Color, Urine Yellow (Yellow); Glucose, Dipstick Normal (Normal); Ketone-Dipstick Negative (Negative); Leukocyte Esterase-Dipstick Negative /ul (Negative); Nitrite-Dipstick Negative (Negative); Occult Blood-Urine Negative /ul (Negative); Protein-Dipstick Negative (Negative); Specific Gravity, Urine 1.005 (1.002-1.030); Urine Bilirubin Dipstick Negative (Negative); Urine Clarity Clear (Clear); Urine Urobilinogen Normal (Normal)
== END 2021-10-05 15:54 | disposition home or self-care (01) ==
PROVIDERS: Emergency Provider Emergency Medicine; PCP Student in an Organized Health Care Education/Training Program; Visit Provider Emergency Medicine
DX: R10.9 Unspecified abdominal pain (principal); R11.0 Nausea; J45.909 Unspecified asthma, uncomplicated; F32.A Depression, unspecified; F41.9 Anxiety disorder, unspecified; E66.9 Obesity, unspecified; F17.210 Nicotine dependence, cigarettes, uncomplicated; Z79.899 Other long term (current) drug therapy
CPT/HCPCS: 74176; 80048; 81001; 85025; 96374; 96375; 99284; A4216

== ENCOUNTER 2022-11-17 22:41 | Emergency (ER) | payer MEDICAID, SELFPAY ==
[2022-11-17 22:43] VITALS: BP 112/62; PULSE 86; RESP 16; TEMP 37; O2SAT 100; BMI 31.9
--- NOTE | 2022-11-17 22:46 | EX.ED.DYSGE1 ---
HPI History of Present Illness Chief Complaint: Abd Pain [facility] Medical History (Updated 11/18/22 @ 00:[address] Michael Kang, DO) Acid reflux Anxiety Asthma Back problem Benign phyllodes tumor of left breast Depression Diarrhea Fibroadenoma of left breast SOB (shortness of breath) Home Medications omeprazole 20 mg capsule,delayed release 40 mg PO BID 02/07/15 [History Last Taken 02/28/20] docusate sodium 100 mg capsule 200 mg PO QHS 05/16/15 [History Last Taken Unknown] cetirizine 10 mg capsule 10 mg PO DAILY 06/25/15 [History Last Taken Unknown] albuterol sulfate 90 mcg/actuation aerosol inhaler 1 - 2 puff inhalation Q4H PRN PRN Wheezing ##1 04/09/16 [Rx Last Taken Unknown] hydroxyzine pamoate 25 mg capsule 50 mg PO TID PRN PRN Anxiety 12/03/16 [History Last Taken Unknown] colestipol 1 gram tablet 1 g PO PRN PRN Diarrhea 09/11/19 [History Last Taken Unknown] dicyclomine 20 mg tablet 20 mg PO Q6H 09/11/19 [History Last Taken Unknown] doxepin 75 mg capsule 75 mg PO QHS 09/11/19 [History Last Taken Unknown] ascorbic acid (vitamin C) 1,000 mg tablet 1,000 mg PO DAILY 02/21/20 [History Last Taken Unknown] multivitamin with minerals 1 ea PO DAILY 02/21/20 [History Last Taken Unknown] topiramate 50 mg tablet 50 mg PO QHS 02/21/20 [History Last Taken Unknown] metoclopramide HCl 5 mg tablet (Reglan) 5 mg PO Q8H PRN PRN nausea and vomiting 7 days #20 tabs 11/18/22 [Rx Last Taken Unknown] Allergy/AdvReac Type Severity Reaction Status Date / Time cyprodenate Allergy Unknown Unknown Verified 11/17/22 22:42 lamotrigine Allergy Unknown Unknown Verified 11/17/22 22:42 ondansetron [From Zofran] Allergy Unknown Unknown Verified 11/17/22 22:42 sulfamethoxazole Allergy Unknown Unknown Verified 11/17/22 22:42 [From Bactrim] trimethoprim [From Bactrim] Allergy Unknown Unknown Verified 11/17/22 22:42 aripiprazole [From Abilify] Allergy Rash Verified 11/17/22 22:42 cephalexin monohydrate Allergy Swelling Verified 11/17/22 22:42 [From Keflex] naproxen Allergy Rash Verified 11/17/22 22:42 ondansetron HCl [From Zofran] Allergy Other Verified 11/17/22 22:42 oxycodone HCl [From Percocet] AdvReac Other Verified 11/17/22 22:42 Penicillins AdvReac Pain in Verified 11/17/22 22:42 joints Surgical History history excisional left breast biopsy (~02/28/20) History of History of tympanostomy tube placement Hx of cholecystectomy Hx of tubal ligation Social History Smoking Status: Current every day smoker tobacco type: cigarettes second hand exposure: Yes alcohol intake: never substance use type: does not use caffeine: Yes what type of physical activity do you participate in: none frequency: does not exercise seatbelt use: always EXAM Physical Exam Const Vital Signs: 11/17/22 22:43 Temperature 98.6 F Temperature Source Temporal Pulse Rate 86 Respiratory Rate 16 Blood Pressure 112/62 Blood Pressure Mean 78 Pulse Ox 100 MDM MDM MDM Narrative Medical decision making narrative: HISTORY OF PRESENT ILLNESS: 42year-old female here for abdominal pain. States she has a history of IBS. States she is abdominal pain and nausea. She further states REVIEW OF SYSTEMS: Pertinent positives: Abdominal pain, nausea Pertinent negatives: PHYSICAL EXAM: Nursing triage notes reviewed, Vital signs reviewed Constitutional: please see mdm HENT: MMM Eyes: Pupils equal round and reactive to light, Extraocular muscles intact Neck: No stridor, no JVD, full neck ROM Lungs: Clear to auscultation, No wheezing or rales. No increased work of breathing, no conversational dyspnea, no accessory muscle use, no nasal flaring. No respiratory distress noted Heart: Regular rate and rhythm, No murmurs, No rubs and No gallops, 2+ distal pulses (radial, femoral, posterior tibial) in all extremities Abdomen: Soft, there is no tenderness, rigidity, rebound or guarding, no obvious peritoneal signs, no palpable pulsatile abdominal masses, no auscultated abdominal bruit : No CVAT Extremities: No edema Neuro: No focal neurological deficits, cranial nerves II through XII intact, 5/5 strength in all extremities. Intact sensation to light touch in all extremities, 2+ reflexes bilateral patella tendons. Normal gait. No ataxia. Skin: No rash or lesions noted MEDICAL DECISION MAKING: Chief Complaint: Abdominal pain, nausea External records reviewed: CT scan of the abdomen pelvis from September 2021 shows no hydronephrosis or urine calcifications no acute surgical abnormality abdomen Factors affecting care: IBS Social determinants of health: Current everyday smoker History obtained from others: Consults: None ALL IMAGES (IF OBTAINED) HAVE BEEN PERSONALLY REVIEWED AND INTERPRETED BY MYSELF. MDM Narrative: The patient was hemodynamically stable, afebrile, nontoxic-appearing. Exam benign. Not consistent with acute surgical process. I considered the following differential diagnosis: Acute surgical process abdomen: Perforation, obstruction, dehydration, electrolyte abnormalities, nephrolithiasis, UTI, gastritis, hepatobiliary obstruction. I considered obstruction, perforation however thought this was less likely given benign nature the patient's abdominal exam. I obtained labs to rule out signs of hepatobiliary function, UTI, electrolyte abnormalities, pancreatitis systemic inflammation, dehydration. Labs are unremarkable. Repeat abdominal exam is benign. Patient appropriate discharge home with Zofran and close GI follow-up. The patient and/or family, caregivers express understanding. The patient and/or family, caregivers agrees with the plan. Total critical care time today provided was at least 0 minutes. This excludes separately billable procedures. Critical care time (if documented) is secondary to the patient having high probability of clinically significant/life threatening deterioration in the patient's condition which required my urgent intervention. Shared decision making: I will have a discussion with the patient and or visitors regarding risk/benefits of further testing or admission. They will be made aware of of the risk/benefits inherent in this decision they will be given the opportunity to voice understanding. Lab Data Attestation: I reviewed the patient's lab results. Lab results narrative: CBC with no leukocytosis to suggest systemic inflammation, mild anemia, no thrombocytopenia BMP with no significant electrolyte abnormalities (noted mild hypokalemia) no anion gap to suggest endorgan hypoperfusion, no MAC LFTs evidence of hepatobiliary obstruction Urine test negative UA without evidence of infection Labs: Laboratory Results - last 24 hr 11/17/22 11/17/22 11/17/22 22:15 22:15 23:27 WBC 10.9 RBC 3.52 L Hgb 11.4 L Hct 34.8 L MCV 98.9 MCH 32.4 H MCHC 32.8 RDW Std Deviation 50.6 H RDW Coeff of Sonu 14.0 Plt Count 227 MPV 12.1 H Immature Gran % (Auto) 1.200 H Neut % (Auto) 59.9 Lymph % (Auto) 27.8 [place] % (Auto) 9.8 Eos % (Auto) 1.1 Baso % (Auto) 0.2 Absolute Neuts (auto) 6.5 Absolute Lymphs (auto) 3.02 Nucleated RBC % 0 Sodium 142 Potassium 3.4 L Chloride 109 H Carbon Dioxide 28.0 Anion Gap 5 BUN 5 L Creatinine 0.87 Estim Creat Clear Calc 74.23 Est GFR (MDRD) Af Amer 93 Est GFR (MDRD) Non-Af 77 BUN/Creatinine Ratio 5.8 L Glucose 106 Calcium 8.7 Total Bilirubin 0.20 Direct Bilirubin 0.06 AST 11 L ALT 16 Alkaline Phosphatase 64 Total Protein 6.9 Albumin 3.5 Globulin 3.4 Lipase 50 Urine Color Yellow Urine Clarity Clear Urine pH 6.5 Ur Specific [place] 1.015 Urine Protein Negative Urine Glucose (UA) Normal Urine Ketones Negative Urine Occult Blood Negative Urine Nitrite Negative Urine Bilirubin Negative Urine Urobilinogen Normal Ur Leukocyte Esterase Negative Urine RBC 0 SEEN Urine WBC 0 SEEN Ur Squamous Epith Cells 0-5 SEEN Urine Bacteria 2+ Urine Mucus 1+ Urine Test Negative Discharge Plan Triage Chief Complaint: Abd Pain ED Provider: Michael Kang Dx/Rx/DC Orders Clinical Impression: Nausea, History of IBS Clinical Impression: (Ruled Out): Abdominal pain, acute Instructions: Abdominal Pain Prescriptions: New metoclopramide HCl [Reglan] 5 mg tablet 5 mg PO Q8H PRN PRN (Reason: nausea and vomiting) 7 Days Qty: 20 0RF No Action dicyclomine 20 mg tablet 20 mg PO Q6H Label Comments: TAKE 1 TABLET BY MOUTH EVERY 6 HOURS doxepin 75 mg capsule 75 mg PO QHS Label Comments: TAKE 1 CAPSULE BY MOUTH AT BEDTIME colestipol 1 gram tablet 1 g PO PRN PRN (Reason: Diarrhea) Label Comments: TAKE 1 TABLET BY MOUTH ONCE DAILY omeprazole 20 MG capsule 40 mg PO BID docusate sodium 100 MG capsule 200 mg PO QHS cetirizine 10 MG capsule 10 mg PO DAILY albuterol sulfate 1 INHALER inhaler 1 - 2 puff inhalation Q4H PRN PRN (Reason: Wheezing) Qty: 1 0RF hydroxyzine pamoate 25 MG capsule 50 mg PO TID PRN PRN (Reason: Anxiety) ascorbic acid (vitamin C) 1,000 MG tablet 1,000 mg PO DAILY multivitamin with minerals 1 EACH tablet 1 ea PO DAILY topiramate 50 MG tablet 50 mg PO QHS Stand Alone Forms: ED Work / School Excuse Primary Care Provider: Miguel Carroll Referrals: Miguel Carroll, [Primary Care Provider] - Activity Restrictions/Additional Instructions: Thank you for trusting us with your care today! Please take Tylenol (2 pills, 650 mg), ibuprofen (2 pills, 400 mg) every 6 hours as needed for pain and fever control. Please take prescribed Reglan as needed for nausea and vomiting control. Please return to the emergency department if your symptoms change or worsen. Specifically if develop worsening abdominal pain, vomiting, diarrhea, if you lose consciousness or develop chest pain or shortness of breath. Please follow with your primary care physician for further outpatient evaluation and management. Disposition Disposition: Home, Self Care
[2022-11-17] MEDS: Morphine 4 MG/ML Syringe IV (23:25)
[2022-11-17] MEDS: Metoclopramide 10 MG/2 ML Vial 5 MG IV (23:25)
[2022-11-17] MEDS: 0.9% Normal Saline 1,000 ML 1000 ML IV (23:26)
[2022-11-17 23:33] LABS: Red Blood Cells-Urine 0 SEEN /hpf (0-5); White Blood Cells 0 SEEN /hpf (0-5)
[2022-11-17 23:35] LABS: Color, Urine Yellow (Yellow); Glucose, Dipstick Normal (Normal); Ketone-Dipstick Negative (Negative); Leukocyte Esterase-Dipstick Negative /ul (Negative); Nitrite-Dipstick Negative (Negative); Occult Blood-Urine Negative /ul (Negative); Protein-Dipstick Negative (Negative); Specific Gravity, Urine 1.015 (1.002-1.030); Urine Bilirubin Dipstick Negative (Negative); Urine Clarity Clear (Clear); Urine Urobilinogen Normal (Normal); Urine pH 6.5 (5.0 - 8.0)
[2022-11-17 23:36] LABS: Absolute Lymphocyte Count 3.02 X10^3/uL (0.83-4.51); Absolute Neutrophil Count 6.5 X10^3/uL (2.0-7.7); Basophil# 0.02 X10^3/uL; Basophil% 0.2 % (0-1); Eosinophil# 0.12 X10^3/uL; Eosinophils% 1.1 % (0-5); Hematocrit 34.8 % (37-47); Hemoglobin 11.4 g/dL (12.0-15.0); Lymphocyte # 3.02 X10^3/ul (0.83-4.51); Lymphocyte % 27.8 % (19-41); Mean Corp Hgb Conc 32.8 g/dL (32-36); Mean Corpuscular Hgb 32.4 pg (27.0-32.0); Mean Corpuscular Volume 98.9 fL (81-99); Mean Platelet Vol. 12.1 fl (6.2-12.0); Monocyte# 1.06 X10^3/uL; Monocyte% 9.8 % (0-10); NRBC Flagged by Analyzer 0 % (0-5); Neutrophil # 6.51 X10^3/uL (2.7-7.7); Neutrophil % 59.9 % (47-70); Platelet Count 227 K/mm3 (150-450); RBC Distribution Width SD 50.6 fl (35.1-43.9); Red Blood Count 3.52 M/mm3 (4.2-5.4); White Blood Count 10.9 K/mm3 (4.4-11.0)
[2022-11-17 23:41] LABS: AST(SGOT) 11 U/L (15-37); Alanine Aminotransfer ALT/SGPT 16 U/L (13-56); Albumin, Serum 3.5 g/dL (3.2-5.0); Alkaline Phosphatase 64 U/L (45-117); Anion Gap 5 (5-15); BUN 5 mg/dL (7-18); BUN/Creat Ratio 5.8 RATIO (10-20); Bilirubin, Direct 0.06 mg/dL (0.00-0.30); Calcium,Total 8.7 mg/dL (8.5-10.1); Chloride 109 mmol/L (98-107); Creatinine, Serum 0.87 mg/dL (0.55-1.02); EST Glomerular Filtration Rate 77 mL/min (>60); Est Glom Filt Rate - Afr Amer 93 mL/min (>60); Estimated Creatinine Clearance 74.23 ml/min; Globulin 3.4 g/dL (2.2-4.2); Glucose 106 mg/dL (74-106); Lipase 50 U/L (13-75); Potassium 3.4 mmol/L (3.5-5.1); Protein, Total 6.9 g/dL (6.4-8.2); Sodium Level 142 mmol/L (136-145)
[2022-11-17 23:45] LABS: Internal QC Validated? YES +Cl - CLEAR BKGD; Pregnancy, Urine Negative Negative
[2022-11-17 23:46] LABS: Bacteria 2+ /hpf (None Seen); Mucous, Urine 1+ /hpf (<or=2+); Squamous Epithelial Cells - UA 0-5 SEEN /hpf (5-10)
[2022-11-18 01:00] VITALS: BP 109/76; PULSE 64; RESP 17; TEMP 36.1; O2SAT 97
== END 2022-11-18 01:01 | disposition home or self-care (01) ==
PROVIDERS: Emergency Provider Emergency Medicine; PCP Student in an Organized Health Care Education/Training Program; Visit Provider Emergency Medicine
DX: R11.0 Nausea (principal); F17.210 Nicotine dependence, cigarettes, uncomplicated; J45.909 Unspecified asthma, uncomplicated; Z87.19 Personal history of other diseases of the digestive system
CPT/HCPCS: 80048; 80076; 81001; 81025; 83690; 85025; 96361; 96374; 96375; 99282; J7030; A4216

== ENCOUNTER 2023-10-10 14:00 | Outpatient (RCR) | payer MEDICAID, SELFPAY ==
--- NOTE | 2023-08-17 18:19 | HP.OTEVAL_ITS ---
Patient's Visit Information Visit Information Visit Information: JUNIOR HYLTON is a 43 year old F, referred to Occupational Therapy by Dr. Tutu Wiggins MD, with a diagnosis of joint stiffness of R hand. Date of Evaluation: 08/17/23 Occupational Therapist: Daly Barrera Subjective Subjective: This 43 year old female referred to OT due to joint stiffness of R hand. initial date of injury possible June [id number] or June 06. a few days before pt punched wall due to anger and then day after [place] pt fell on hand. June 08 pt went to urgent care where they completed x ray and stated nothing was broken. Pt saw Dr sanz May 15 who states pt most likely did in fact have a fx. pt is now 10.5 weeks from possible date of injury. Pain R hand: Current Pain Intensity: 5 Pain Intensity Range: 5 Objective Objective/Observation: pts R hand D 4 and 5 in extension difficulty bringing digits into flexion at all joints ROM Shoulder: wfl Elbow: wfl Forearm: wfl Wrist: wfl MP: R : LF 0/10 RF 0/25 L wfl PIP: R: LF 0/0 RF 0/15 L wfl DIP: R: LF lacking 35/35 L wfl ROM Comments: pt R hand thumb previously broken 7-8 years ago and now presents with minimal movement at the [facility] MP and IP joint. Pt with stiffness of D4 and D5 positioned in extension difficulty with performing flexion at MCP PIP as well as DIP pt has been self wearing forearm based extension splint placing D4 and D5 into full extension. she has been wearing this since going to urgent clinic all day as well as all night. extensor lag at MCP of 4 and 5 resting in LF flexion of 10 and RF flexion of 15 degrees pts D5 with flexion at rest at 35 degrees Strength Cctv Technician: R hand 20 pounds L hand 45 pounds Lateral Pinch: R hand 5 pounds L hand 12 pounds Tripod Pinch: R hand 5 pounds L hand 12 pounds Intrinsics: tight Strength Comments: decreased strength of R hand due to decreased motion of D4 and D5 decreased lateral as well as tripod pinch compare to L hand. pt is R hand dominant impacting her ability to perform ADL, IADL task as well as writting , davion. Sensation Sensation Comments: no reports of numbness tingling or burning at eval Quick DASH-Disab of Arm,Shoulder& Hand Quick DASH Score: 45.4525 Goals Goal:: pt will increase R hand rehabilitation assistant strength to 10 pounds by discharge pt will increase lateral as well as tripod pinch strength to 8 pounds by discharge Goal:: pt will demonstrate an increase of ROM in LF MCP PIP and DIP joint of 8- 10 degrees or more within 2 weeks pt will demonstrate an increase of ROM in RF of MCP PIP and DIP joint of 8-10 degrees or more within weeks pt will demonstrate the ability to make a composite fist by discharge Goal:: pt will report a pain rating score of 3 or less during functional tasks throughout the day including during ADL and IADL tasks Goal:: pt will demonstrate the ability to comb hair with IND prior to discharge Goal:: pt will demonstrate the ability to legibly print name 5/5 trials before discharge Goal:: pt will decrease score of quick dash by 10-15 points by discharge Rehabilitation Rehabilitation Potential: Good Anticipated Interventions Anticipated Interventions: A/AAROM/PROM, Strengthening, Massage, Modalities, Joint Protection/Energy Conservation, Fine Motor Coord/Marco A, ADL Training and Home Program Visit Plan Frequency: 2x /Week Duration: 4 Weeks General Plan: improve R hand D4 and D5 AROM improve rehabilitation assistant as well as lateral and tripod pinch decrease pain modalities provide training in joint protection and positioning TEXT: Thank you for the opportunity to evaluate your patient. For Medicare and Medicare HMO plans, please review the plan of care and approve it. It will need to be FAXED BACK to us at [phone] for Medicare purposes. Please let me know if there are questions or concerns regarding this plan of care. Physician Signature: Date:
--- NOTE | 2023-09-19 14:45 | OTREVAL_ITS ---
Re-Evaluation Intro: Dr. Tutu Wiggins MD, It has been my pleasure to treat JUNIOR HYLTON over the last 7 visits for joint stiffness of R hand. Please see the progress note below for an update on the occupational therapy plan of care! Subjective Subjective: pt arrives this date with copper fit work gear compression glove that she purchased on monday due to other glove not coming in yet Objective Objective/Function: R hand ROM R D4 MCP 0/70 D5 0/65 R D4 PIP 0/60 D5 0/55 R D4 DIP 0/60 D5 35/60 Plan Plan Frequency: 2x /Week Duration: 3 Weeks Plan: modalities heat stretch AROM of R hand digits Goals Goals Patient Goals: Regain Mobility, Regain Strength, Decrease Pain, Decrease Swelling/Stiffness, Improve Fine Motor Skills, Use Hand/Wrist/Arm Normally Again, Increase ROM, Be More Independent in ADLS and Resume Hobbies Other: pt would like to be able to write legibly and returning to leisure pursuit davion Goal:: pt will increase R hand storage battery inspector strength to 10 pounds by discharge -- ongoing pt will increase lateral as well as tripod pinch strength to 8 pounds by discharge -- ongoing Goal:: pt will demonstrate an increase of ROM in LF MCP PIP and DIP joint of 8- 10 degrees or more within 2 weeks -- improvement in MCP PIP and DIP PROM pt will demonstrate an increase of ROM in RF of MCP PIP and DIP joint of 8-10 degrees or more within weeks -- improvement in MCP PIP and DIP PROM pt will demonstrate the ability to make a composite fist by discharge -- ongoing Goal:: pt will report a pain rating score of 3 or less during functional tasks throughout the day including during ADL and IADL tasks---- 3 this date 09/19/23 Goal:: pt will demonstrate the ability to comb hair with IND prior to discharge -- unable Goal:: pt will demonstrate the ability to legibly print name 5/5 trials before discharge --- unable Goal:: pt will decrease score of quick dash by 10-15 points by discharge -- ongoing Anticipated Interventions Anticipated Interventions Anticipated Interventions: A/AAROM/PROM, Strengthening, Massage, Modalities, Joint Protection/Energy Conservation, Fine Motor Coord/Marco A, ADL Training and Home Program Re-Evaluation Ending Re-evaluation ending: Please do not hesitate to contact me at [phone] by phone or if you have questions or concerns regarding this new plan of care! Sincerely, Daly Barrera
--- NOTE | 2023-10-10 14:47 | HP.OT.NRP ---
Patient Information Patient Information: JUNIOR HYLTON was seen in my office for initial evaluation on 08/17/23. The following Plan of Care was established for this patient: POC Established Initial Frequency: 2x /Week Initial Duration: 3 Weeks Plan: discharge this date Anticipated Interventions Anticipated Interventions: A/AAROM/PROM, Strengthening, Massage, Modalities, Joint Protection/Energy Conservation, Fine Motor Coord/Marco A, ADL Training and Home Program Last Seen Last Seen: This patient was last seen in our office 10/10/23. Pertinent comments regarding their Occupational therapy will appear below: patient was able to gain PROM of D4 and D5 in R hand however continues to have pain with movement, weight bearing and active use of hand. pt with difficulty completing active motion at D5. OT recommending pt return to physician at this time. At this point I will be discontinuing this patient from occupational therapy. I would be happy to see this patient again in the future if found appropriate by the physician. Thank you! Daly Barrera
== END 2023-10-10 19:00 | disposition home or self-care (01) ==
LOC: OT 14:00
PROVIDERS: PCP Student in an Organized Health Care Education/Training Program; Referring Provider Orthopaedic Surgery; Visit Provider Orthopaedic Surgery
DX: M25.641 Stiffness of right hand, not elsewhere classified (principal)
CPT/HCPCS: 97035; 97110; 97140; 97166; 97530